=== PATIENT | male | born 2000 | race Caucasian/White ===

== ENCOUNTER 2020-12-31 17:00 | Emergency (ER) | payer OTHER ==
[~2020-12-31] VITALS: Ht 172.7 cm; Wt 64.5 kg
[2020-12-31] MEDS ORDERED: OLAN10TA3 PO (20:00)
[2020-12-31 21:12] VITALS: BP 148/80
== END 2020-12-31 21:23 | disposition home or self-care (01) ==
LOC: EMS 17:00
DX: R45.1 Restlessness and agitation (principal); R45.851 Suicidal ideations
CPT/HCPCS: 99285; Z7502

== ENCOUNTER 2021-02-01 00:44 | Inpatient (IN) | payer MEDICAID, OTHER ==
[~2021-02-01] VITALS: Ht 182.9 cm; Wt 69.3 kg
[~2021-02-01 00:44] MED LIST: OLAN10TA3 PO
[2021-02-01 01:18] LABS: BASOPHILS % (AUTO) 0.3 % (0.0-2.0); EOSINOPHILS % (AUTO) 0.6 % (1.0-6.0); HEMATOCRIT 43.5 % (41-53); HEMOGLOBIN 14.6 g/dL (13.5-17.5); LYMPHOCYTES # (AUTO) 2.6 K/uL (1.0-4.8); LYMPHOCYTES % (AUTO) 29.1 % (22.0-44.0); MEAN CORPUSCULAR HEMOGLOBIN 27.3 pg (26.0-34.0); MEAN CORPUSCULAR HGB CONC 33.5 G/dL (31.0-37.0); MEAN CORPUSCULAR VOLUME 82 fL (80-100); MONOCYTES # (AUTO) 1.1 K/uL (0.1-1.0); MONOCYTES % (AUTO) 12.6 % (2.0-9.0); NEUTROPHILS % (AUTO) 57.4 % (40.0-70.0); PLATELET COUNT (AUTO) 313 K/uL (150-450); RED BLOOD CELL COUNT(AUTO) 5.33 MIL/uL (4.50-5.90); RED CELL DISTRIBUTION WIDTH 13.7 % (11.5-14.5)
[2021-02-01 01:23] LABS: ANION GAP 8 mmol/L (8-16); CALCIUM, TOTAL 9.9 mg/dL (8.8-10.5); CARBON DIOXIDE 33 mmol/L (22-29); CHLORIDE 103 mmol/L (98-107); GLOMERULAR FILTR. RATE CALC > 60 mL/min (>60); GLUCOSE,RANDOM 71 mg/dL (70-110); SODIUM SERUM 144 mmol/L (136-145); UREA NITROGEN, BLOOD 13 mg/dL (7-18)
[2021-02-01 01:31] LABS: ALANINE AMINOTRANSFERASE 29 U/L (12-78); ALBUMIN 4.6 g/dL (3.4-5.0); ALKALINE PHOSPHATASE 78 U/L (46-116); ASPARTATE AMINOTRANSFERASE 28 U/L (15-37); BILIRUBIN,TOTAL 0.5 mg/dL (0.1-1.0); TOTAL PROTEIN, SERUM 8.5 g/dL (6.4-8.2)
[2021-02-01] MEDS ORDERED: ZOLPIDEM TARTRATE 10 MG TABLET PO PRN (02:45)
[2021-02-01 02:46] LABS: AMPHET/METH SCREEN,URINE NEGATIVE (NEGATIVE); BARBITURATE SCREEN, URINE NEGATIVE (NEGATIVE); BENZODIAZEPINES SCREEN,URINE NEGATIVE (NEGATIVE); CANNABINOID SCREEN,URINE NEGATIVE (NEGATIVE); COCAINE SCREEN,URINE NEGATIVE (NEGATIVE); METHADONE SCREEN, URINE NEGATIVE (NEGATIVE); OPIATE SCREEN,URINE NEGATIVE (NEGATIVE)
[2021-02-01 02:49] LABS: PHENCYCLIDINE SCREEN,URINE NEGATIVE (NEGATIVE)
[2021-02-01 03:07] LABS: COVID AG,FIA SOURCE NASOPHARYNGEAL
[2021-02-01 03:46] LABS: APPEARANCE,URINE CLOUDY (CLEAR); BILIRUBIN,URINE NEGATIVE (NEGATIVE); GLUCOSE, URINE (UA) NEGATIVE (NEGATIVE); KETONES,URINE NEGATIVE (NEGATIVE); LEUKOCYTE ESTERASE ,URINE NEGATIVE (NEGATIVE); NITRATE,URINE NEGATIVE (NEGATIVE); OCCULT BLOOD,URINE NEGATIVE (NEGATIVE); PH,URINE 7.5 (5.0-8.0); PROTEIN,URINE NEGATIVE (NEGATIVE); UROBILINOGEN,URINE 0.2 mg/dL (<=1.0)
[2021-02-01 04:02] VITALS: BP 106/65
[2021-02-01 08:01] VITALS: BP 124/64
[2021-02-01 16:15] VITALS: BP 119/73
[2021-02-01] MEDS ORDERED: ALBUTEROL SULFATE HFA 90 MCG/PUFF 8 GM INHALER IH PRN (22:45)
[2021-02-01] MEDS ORDERED: ONDANSETRON HCL 4 MG TABLET PO PRN (22:45)
[2021-02-01] MEDS ORDERED: PETROLATUM,WHITE 28 GM JELLY TP PRN (22:45)
[2021-02-01] MEDS ORDERED: MAG HYDROX/AL HYDROX/SIMETH ES 30 ML SUSPENSION UDCUP PO PRN (22:45)
[2021-02-01] MEDS ORDERED: CloNIDine HCL 0.1 MG TABLET PO PRN (22:45)
[2021-02-01] MEDS ORDERED: BACITRACIN 28 GM OINTMENT TP PRN (22:45)
[2021-02-01] MEDS ORDERED: DOCUSATE SODIUM 100 MG CAPSULE PO PRN (22:45)
[2021-02-01] MEDS ORDERED: LOPERAMIDE HCL 2 MG CAPSULE PO PRN (22:45)
[2021-02-01] MEDS ORDERED: IBUPROFEN 600 MG TABLET PO PRN (22:45)
[2021-02-01] MEDS ORDERED: BENZOCAINE/MENTHOL LOZENGE PO PRN (22:45)
[2021-02-01] MEDS ORDERED: MAGNESIUM HYDROXIDE SUSPENSION 30 ML UDCUP PO PRN (22:45)
[2021-02-01] MEDS ORDERED: ACETAMINOPHEN 325 MG TABLET PO PRN (22:45)
[2021-02-01] MEDS ORDERED: OMEPRAZOLE 20 MG CAPSULE PO PRN (22:45)
[2021-02-02 07:33] LABS: CHOL/HDL RATIO 2.2 (4.2-7.3)
[2021-02-02 08:03] VITALS: BP 118/70
[2021-02-02] MEDS: LORazepam 2 MG TABLET PO PRN (08:35)
[2021-02-02] MEDS: HALOPERIDOL 5 MG TABLET PO PRN (08:35)
[2021-02-02 16:25] VITALS: BP 109/48
[2021-02-02] MEDS: OLANZapine 10 MG TABLET PO SCH (20:11)
[2021-02-03 08:00] VITALS: BP 117/61
[2021-02-03 16:16] VITALS: BP 110/80
[2021-02-03] MEDS: OLANZapine 10 MG TABLET PO SCH (20:05)
[2021-02-04 08:00] VITALS: BP 118/53
[2021-02-04 16:30] VITALS: BP 133/71
[2021-02-04] MEDS: LORazepam 2 MG TABLET PO PRN (16:52)
[2021-02-04] MEDS: OLANZapine 10 MG TABLET PO SCH (20:58)
[2021-02-04] MEDS: HALOPERIDOL 5 MG TABLET PO SCH (21:42)
[2021-02-05 08:00] VITALS: BP 138/58
[2021-02-05] MEDS: BENZTROPINE MESYLATE 1 MG TABLET PO SCH ×2 (08:22→15:56)
[2021-02-05] MEDS: LITHIUM CARBONATE 300 MG CAPSULE PO SCH ×2 (08:22→15:56)
[2021-02-05] MEDS: DIVALPROEX SODIUM 500 MG DR TABLET PO SCH ×2 (08:22→15:56)
[2021-02-05 16:54] VITALS: BP 124/78
[2021-02-05] MEDS: HALOPERIDOL 5 MG TABLET PO SCH (21:00)
[2021-02-05] MEDS: OLANZapine 10 MG TABLET PO SCH (21:00)
[2021-02-06 08:00] VITALS: BP 136/59
[2021-02-06] MEDS: LITHIUM CARBONATE 300 MG CAPSULE PO SCH ×2 (08:29→16:00)
[2021-02-06] MEDS: BENZTROPINE MESYLATE 1 MG TABLET PO SCH ×2 (08:29→16:00)
[2021-02-06] MEDS: DIVALPROEX SODIUM 500 MG DR TABLET PO SCH ×2 (08:29→16:00)
[2021-02-06 13:29] LABS: COVID AG,FIA SOURCE NASOPHARYNGEAL
[2021-02-06 16:03] VITALS: BP 140/86
[2021-02-06] MEDS: OLANZapine 10 MG TABLET PO SCH (21:01)
[2021-02-06] MEDS: HALOPERIDOL 5 MG TABLET PO SCH (21:01)
[2021-02-07 08:00] VITALS: BP 123/83
[2021-02-07] MEDS: LITHIUM CARBONATE 300 MG CAPSULE PO SCH ×2 (08:21→16:05)
[2021-02-07] MEDS: DIVALPROEX SODIUM 500 MG DR TABLET PO SCH ×2 (08:21→16:05)
[2021-02-07] MEDS: BENZTROPINE MESYLATE 1 MG TABLET PO SCH ×2 (08:21→16:05)
[2021-02-07 16:06] VITALS: BP 119/72
[2021-02-07] MEDS: HALOPERIDOL 5 MG TABLET PO SCH (20:26)
[2021-02-07] MEDS: OLANZapine 10 MG TABLET PO SCH (20:26)
[2021-02-08 08:00] VITALS: BP 156/80
[2021-02-08] MEDS: LORazepam 2 MG TABLET PO PRN (10:00)
[2021-02-08] MEDS: LITHIUM CARBONATE 300 MG CAPSULE PO SCH ×2 (10:00→16:00)
[2021-02-08] MEDS: DIVALPROEX SODIUM 500 MG DR TABLET PO SCH ×2 (10:00→16:00)
[2021-02-08] MEDS: BENZTROPINE MESYLATE 1 MG TABLET PO SCH ×2 (10:00→16:00)
[2021-02-08 16:06] VITALS: BP 140/60
[2021-02-08] MEDS: OLANZapine 10 MG TABLET PO SCH (20:20)
[2021-02-08] MEDS: HALOPERIDOL 5 MG TABLET PO SCH (20:20)
[2021-02-09] MEDS: BENZTROPINE MESYLATE 1 MG TABLET PO SCH ×2 (08:10→15:57)
[2021-02-09] MEDS: LITHIUM CARBONATE 300 MG CAPSULE PO SCH ×2 (08:10→15:57)
[2021-02-09] MEDS: DIVALPROEX SODIUM 500 MG DR TABLET PO SCH ×2 (08:10→15:57)
[2021-02-09 08:31] VITALS: BP 118/52
[2021-02-09 09:11] LABS: LITHIUM 0.31 mmol/L (0.60-1.20)
[2021-02-09 16:04] VITALS: BP 118/76
[2021-02-09] MEDS: OLANZapine 7.5 MG TABLET PO SCH (20:11)
[2021-02-09] MEDS: HALOPERIDOL 10 MG TABLET PO SCH (20:11)
[2021-02-10 08:00] VITALS: BP 138/78
[2021-02-10] MEDS: DIVALPROEX SODIUM 500 MG DR TABLET PO SCH ×2 (09:07→16:21)
[2021-02-10] MEDS: BENZTROPINE MESYLATE 1 MG TABLET PO SCH ×2 (09:07→16:20)
[2021-02-10] MEDS: LITHIUM CARBONATE 300 MG CAPSULE PO SCH ×2 (09:07→16:21)
[2021-02-10] MEDS: LORazepam 2 MG TABLET PO PRN (09:09)
[2021-02-10 16:28] VITALS: BP 115/62
[2021-02-10] MEDS: OLANZapine 7.5 MG TABLET PO SCH (20:35)
[2021-02-10] MEDS: HALOPERIDOL 10 MG TABLET PO SCH (20:35)
[2021-02-11 08:00] VITALS: BP 132/66
[2021-02-11] MEDS: DIVALPROEX SODIUM 500 MG DR TABLET PO SCH ×2 (09:37→16:17)
[2021-02-11] MEDS: HALOPERIDOL 5 MG TABLET PO PRN (09:37)
[2021-02-11] MEDS: BENZTROPINE MESYLATE 1 MG TABLET PO SCH ×2 (09:37→16:17)
[2021-02-11 16:22] VITALS: BP 118/63
[2021-02-11] MEDS: LITHIUM CARBONATE 300 MG CAPSULE PO SCH (20:28)
[2021-02-11] MEDS: HALOPERIDOL 10 MG TABLET PO SCH (20:28)
[2021-02-11] MEDS: OLANZapine 7.5 MG TABLET PO SCH (20:28)
[2021-02-12] MEDS: HALOPERIDOL 5 MG TABLET PO PRN (08:25)
[2021-02-12] MEDS: DIVALPROEX SODIUM 500 MG DR TABLET PO SCH ×2 (08:25→16:02)
[2021-02-12] MEDS: BENZTROPINE MESYLATE 1 MG TABLET PO SCH ×2 (08:25→16:02)
[2021-02-12 08:42] VITALS: BP 125/68
[2021-02-12 16:00] VITALS: BP 112/69
[2021-02-12] MEDS: OLANZapine 7.5 MG TABLET PO SCH (21:31)
[2021-02-12] MEDS: LITHIUM CARBONATE 300 MG CAPSULE PO SCH (21:31)
[2021-02-12] MEDS: HALOPERIDOL 10 MG TABLET PO SCH (21:31)
[2021-02-13 08:49] VITALS: BP 147/76
[2021-02-13] MEDS: DIVALPROEX SODIUM 500 MG DR TABLET PO SCH ×2 (09:02→16:22)
[2021-02-13] MEDS: BENZTROPINE MESYLATE 1 MG TABLET PO SCH ×2 (09:02→16:22)
[2021-02-13 16:40] VITALS: BP 130/83
[2021-02-13] MEDS: LITHIUM CARBONATE 300 MG CAPSULE PO SCH (20:38)
[2021-02-13] MEDS: OLANZapine 7.5 MG TABLET PO SCH (20:38)
[2021-02-13] MEDS: HALOPERIDOL 10 MG TABLET PO SCH (20:38)
[2021-02-13 22:31] LABS: COVID AG,FIA SOURCE NASOPHARYNGEAL
[2021-02-14 05:27] VITALS: BP 124/71
[2021-02-14] MEDS: BENZTROPINE MESYLATE 1 MG TABLET PO SCH (08:20)
[2021-02-14] MEDS: DIVALPROEX SODIUM 500 MG DR TABLET PO SCH (08:20)
[2021-02-14 08:31] VITALS: BP 129/62
[2021-02-14] MEDS ORDERED: LITH300C3 PO (13:42)
[2021-02-14] MEDS ORDERED: DIVA-112 PO (13:42)
[2021-02-14] MEDS ORDERED: HALO10 PO (13:42)
[2021-02-14] MEDS ORDERED: BENZ1TAB10 PO (13:42)
== END 2021-02-14 15:00 | disposition home or self-care (01) | DRG 750 ==
LOC: EMS 00:45 → 3EC 02:44 → 3EI 02-12 14:46
PROVIDERS: ADMIT Psychiatry & Neurology Psychiatry; ATTEND Psychiatry & Neurology Psychiatry
DX: F20.0 Paranoid schizophrenia (principal); F41.9 Anxiety disorder, unspecified; F84.5 Asperger's syndrome; Z20.822 Contact with and (suspected) exposure to COVID-19
CPT/HCPCS: 87426; 99285; G0480

== ENCOUNTER 2023-07-04 12:42 | Inpatient (IN) | payer MEDICAID, OTHER ==
[~2023-07-04] VITALS: Ht 175.3 cm; Wt 77.5 kg
[~2023-07-04 12:42] MED LIST changes: +BENZ1TAB84 PO; +DIVA-112 PO; +HALO10TA21 PO; +LITH300C3 PO; -OLAN10TA3 PO; +OLAN7.5T22 PO
[2023-07-04 13:26] LABS: BASOPHILS % (AUTO) 0.6 % (0.0-2.0); EOSINOPHILS % (AUTO) 0.1 % (1.0-6.0); HEMATOCRIT 44.4 % (41-53); HEMOGLOBIN 14.5 g/dL (13.5-17.5); LYMPHOCYTES # (AUTO) 1.7 K/uL (1.0-4.8); LYMPHOCYTES % (AUTO) 19.4 % (22.0-44.0); MEAN CORPUSCULAR HGB CONC 32.7 G/dL (31.0-37.0); MEAN CORPUSCULAR VOLUME 83 fL (80-100); MONOCYTES # (AUTO) 0.9 K/uL (0.1-1.0); MONOCYTES % (AUTO) 9.8 % (2.0-9.0); NEUTROPHILS # (AUTO) 6.3 K/uL (1.8-7.7); NEUTROPHILS % (AUTO) 70.1 % (40.0-70.0); PLATELET COUNT (AUTO) 336 K/uL (150-450); RED BLOOD CELL COUNT(AUTO) 5.38 MIL/uL (4.50-5.90); RED CELL DISTRIBUTION WIDTH 13.9 % (11.5-14.5)
[2023-07-04] MEDS ORDERED: ARIP10TA38 PO (13:28)
[2023-07-04] MEDS ORDERED: OLAN2.5T29 PO (13:28)
[2023-07-04] MEDS ORDERED: DIVA500T53 PO (13:28)
[2023-07-04 13:33] LABS: ANION GAP 8 mmol/L (8-16); CALCIUM, TOTAL 9.4 mg/dL (8.8-10.5); CARBON DIOXIDE 30 mmol/L (22-29); CHLORIDE 102 mmol/L (98-107); CREATININE 0.83 mg/dL (0.60-1.30); GLOMERULAR FILTR. RATE CALC > 60 mL/min (>60); GLUCOSE,RANDOM 97 mg/dL (70-110); POTASSIUM 3.7 mmol/L (3.5-5.1); SODIUM SERUM 139 mmol/L (136-145)
[2023-07-04 13:34] LABS: COVID AG,FIA SOURCE NASOPHARYNGEAL
[2023-07-04 13:39] LABS: ALANINE AMINOTRANSFERASE 32 U/L (12-78); ALBUMIN 4.2 g/dL (3.4-5.0); ALKALINE PHOSPHATASE 59 U/L (46-116); ASPARTATE AMINOTRANSFERASE 33 U/L (15-37); BILIRUBIN,TOTAL 0.5 mg/dL (0.1-1.0); TOTAL PROTEIN, SERUM 7.7 g/dL (6.4-8.2)
[2023-07-04] MEDS ORDERED: HALOPERIDOL LACTATE 5 MG/ML VIAL IM ONE (13:45)
[2023-07-04] MEDS ORDERED: LORazepam 2 MG/ML VIAL IM ONE (13:45)
[2023-07-04] MEDS ORDERED: DiphenhydrAMINE HCL 50 MG/ML VIAL IM ONE (13:45)
[2023-07-04] MEDS ORDERED: HALOPERIDOL 5 MG TABLET PO PRN (14:45)
[2023-07-04 19:22] LABS: APPEARANCE,URINE CLEAR (CLEAR); BILIRUBIN,URINE NEGATIVE (NEGATIVE); GLUCOSE, URINE (UA) NEGATIVE (NEGATIVE); KETONES,URINE NEGATIVE (NEGATIVE); LEUKOCYTE ESTERASE ,URINE NEGATIVE (NEGATIVE); NITRATE,URINE NEGATIVE (NEGATIVE); OCCULT BLOOD,URINE NEGATIVE (NEGATIVE); PROTEIN,URINE NEGATIVE (NEGATIVE); SPECIFIC GRAVITIY, URINE 1.009 (1.003-1.030); UROBILINOGEN,URINE <=1.0 mg/dL (<=1.0)
[2023-07-04 19:29] LABS: AMPHET/METH SCREEN,URINE NEGATIVE (NEGATIVE); BARBITURATE SCREEN, URINE NEGATIVE (NEGATIVE); BENZODIAZEPINES SCREEN,URINE NEGATIVE (NEGATIVE); CANNABINOID SCREEN,URINE NEGATIVE (NEGATIVE); COCAINE SCREEN,URINE NEGATIVE (NEGATIVE); METHADONE SCREEN, URINE NEGATIVE (NEGATIVE); OPIATE SCREEN,URINE NEGATIVE (NEGATIVE); PHENCYCLIDINE SCREEN,URINE NEGATIVE (NEGATIVE)
[2023-07-04 23:20] VITALS: BP 115/60; PULSE 72; RESP 18; TEMP 97.4
[2023-07-05] MEDS: LORazepam 2 MG TABLET PO PRN (07:55)
[2023-07-05 08:23] VITALS: BP 120/67; PULSE 62; RESP 18; TEMP 97.6
[2023-07-05] MEDS: BENZTROPINE MESYLATE 1 MG TABLET PO SCH (17:10)
[2023-07-05] MEDS: DIVALPROEX SODIUM 500 MG DR TABLET PO SCH (17:10)
[2023-07-05] MEDS ORDERED: LOPERAMIDE HCL 2 MG CAPSULE PO PRN (19:45)
[2023-07-05] MEDS ORDERED: CloNIDine HCL 0.1 MG TABLET PO PRN (19:45)
[2023-07-05] MEDS ORDERED: OMEPRAZOLE 20 MG CAPSULE PO PRN (19:45)
[2023-07-05] MEDS ORDERED: ALBUTEROL SULFATE HFA 90 MCG/PUFF 8 GM INHALER IH PRN (19:45)
[2023-07-05] MEDS ORDERED: BENZOCAINE/MENTHOL LOZENGE PO PRN (19:45)
[2023-07-05] MEDS ORDERED: IBUPROFEN 600 MG TABLET PO PRN (19:45)
[2023-07-05] MEDS ORDERED: DOCUSATE SODIUM 100 MG CAPSULE PO PRN (19:45)
[2023-07-05] MEDS ORDERED: ONDANSETRON HCL 4 MG TABLET PO PRN (19:45)
[2023-07-05] MEDS ORDERED: MAG HYDROX/AL HYDROX/SIMETH ES 30 ML SUSPENSION UDCUP PO PRN (19:45)
[2023-07-05] MEDS ORDERED: BACITRACIN 28 GM OINTMENT TP PRN (19:45)
[2023-07-05] MEDS ORDERED: MAGNESIUM HYDROXIDE SUSPENSION 30 ML UDCUP PO PRN (19:45)
[2023-07-05] MEDS ORDERED: ACETAMINOPHEN 325 MG TABLET PO PRN (19:45)
[2023-07-05] MEDS ORDERED: PETROLATUM,WHITE 28 GM JELLY TP PRN (19:45)
[2023-07-05] MEDS: LITHIUM CARBONATE 300 MG CAPSULE PO SCH (20:47)
[2023-07-05] MEDS: HALOPERIDOL 10 MG TABLET PO SCH (20:47)
[2023-07-05 21:01] VITALS: BP 122/82; PULSE 78; RESP 20; TEMP 97.4
[2023-07-05] MEDS: ZOLPIDEM TARTRATE 10 MG TABLET PO PRN (21:34)
[2023-07-06 09:52] VITALS: BP 114/64; PULSE 72; RESP 18; TEMP 97.4
[2023-07-06] MEDS: DIVALPROEX SODIUM 500 MG DR TABLET PO SCH ×2 (10:19→17:16)
[2023-07-06] MEDS: BENZTROPINE MESYLATE 1 MG TABLET PO SCH ×2 (10:19→17:16)
[2023-07-06] MEDS: LORazepam 2 MG TABLET PO PRN (19:54)
[2023-07-06 20:11] VITALS: BP 118/70; PULSE 70; RESP 18; TEMP 97.5
[2023-07-06] MEDS: HALOPERIDOL 10 MG TABLET PO SCH (20:27)
[2023-07-06] MEDS: LITHIUM CARBONATE 300 MG CAPSULE PO SCH (20:27)
[2023-07-06] MEDS: ZOLPIDEM TARTRATE 10 MG TABLET PO PRN (21:52)
[2023-07-07] MEDS: BENZTROPINE MESYLATE 1 MG TABLET PO SCH ×2 (09:40→16:39)
[2023-07-07] MEDS: DIVALPROEX SODIUM 500 MG DR TABLET PO SCH ×2 (09:40→16:38)
[2023-07-07 09:51] VITALS: BP 130/70; PULSE 76; RESP 18; TEMP 98.1
[2023-07-07] MEDS: LORazepam 2 MG TABLET PO PRN (19:25)
[2023-07-07] MEDS: HALOPERIDOL 10 MG TABLET PO SCH (20:37)
[2023-07-07] MEDS: LITHIUM CARBONATE 300 MG CAPSULE PO SCH (20:37)
[2023-07-07] MEDS: ZOLPIDEM TARTRATE 10 MG TABLET PO PRN (21:45)
[2023-07-07 23:04] VITALS: RESP 18
[2023-07-08 08:00] VITALS: BP 136/80; PULSE 67; RESP 18; TEMP 97.1
[2023-07-08] MEDS: DIVALPROEX SODIUM 500 MG DR TABLET PO SCH (08:18)
[2023-07-08] MEDS: BENZTROPINE MESYLATE 1 MG TABLET PO SCH (08:18)
[2023-07-08] MEDS ORDERED: BENZ1TAB84 PO (11:45)
[2023-07-08] MEDS ORDERED: LITH300C3 PO (11:46)
[2023-07-08] MEDS ORDERED: HALO10TA21 PO (11:46)
== END 2023-07-08 15:28 | disposition home or self-care (01) | DRG 750 ==
LOC: EMS 12:45 → 3EC 18:30
PROVIDERS: ADMIT Psychiatry & Neurology Psychiatry; ATTEND Psychiatry & Neurology Psychiatry
DX: F20.9 Schizophrenia, unspecified (principal); F41.9 Anxiety disorder, unspecified; I10 Essential (primary) hypertension; Z20.822 Contact with and (suspected) exposure to COVID-19; G47.00 Insomnia, unspecified; K59.00 Constipation, unspecified
CPT/HCPCS: 80053; 80307; 81003; 85025; 99285; G0480; J1200; J1630; J2060